=== PATIENT | female | born 1955 | race Caucasian/White ===

== ENCOUNTER → 2019-11-12 | Outpatient (CLI) | payer BC ==
[~2019-11-12] MED LIST: ASA5UEC PO; B COMPLETE1 EAC1 PO; BETAMETHASONE D15 G6; CALCIUM 500 +1 EAC5 PO; CRANBERRY CONCENTRAT PO; HYDROCODONE-AP1 EAC6 PO; KEFLEX500 MG PO; NOHOMEMEDICATIONS; NYSTATIN15 GM; ONDANSETRON HCL4 M2 PO; PROAIR HFA8.5 GM INH; TRIAMCINOLONE A80 G2; VITAMIN D33000 UNIT PO; VITAMINC500 PO
== END ==
LOC: LAB 11:45
PROVIDERS: ATTEND Nurse Practitioner
DX: R05 Cough (principal); R19.7 Diarrhea, unspecified; R53.1 Weakness; R53.83 Other fatigue; Z20.828 Contact with and (suspected) exposure to other viral communicable diseases

== ENCOUNTER 2019-11-19 19:10 | Emergency (ER) | payer BC, OTHER ==
[~2019-11-19] VITALS: Ht 154.9 cm; Wt 81.7 kg
[2019-11-19 19:53] LABS: BE(vivo) -14.8 mmol/L (-2 to +3); HCO3 10.4 mmol/L (22.0-26.0); PO2 79.8 mmHg (80.0-100.0); sO2 94.4 % (92.0-98.0)
[2019-11-19 19:54] LABS: PCO2 23.6 mmHg (35.0-45.0); pH 7.261 (7.360-7.450)
[2019-11-19 20:25] LABS: HEMATOCRIT 37.6 % (37.0-47.0); HEMOGLOBIN 11.4 gm/dL (12.0-15.0); MCH 29.1 pg (26.0-34.0); MCHC 30.3 g/dL (28.0-37.0); MCV 96.1 fL (80.0-100.0); PLATELET COUNT 236 thou/uL (150-400); RBC 3.91 mil/uL (4.20-5.00); RDW 15.9 % (10.5-14.5); WBC 23.2 thou/uL (4.0-11.0)
[2019-11-19 20:42] LABS: CALCIUM 9.2 mg/dL (8.5-10.1); CREATININE 3.8 mg/dL (0.6-1.0); POTASSIUM 4.5 mmol/L (3.5-5.1)
[2019-11-19 20:46] LABS: ALBUMIN 2.1 g/dL (3.4-5.0); TOTAL BILIRUBIN 0.4 mg/dL (0.2-1.0); TOTAL PROTEIN 7.8 g/dL (6.4-8.2)
[2019-11-19 20:58] LABS: ABSOLUTE NEUTROPHILS 20.6 thou/uL (1.4-8.2); PLATELET ESTIMATE NORMAL
[2019-11-19 23:11] LABS: URINE BILIRUBIN NEGATIVE (Negative); URINE BLOOD 3+ (Negative); URINE CLARITY SL CLOUDY; URINE COLOR YELLOW; URINE GLUCOSE-RANDOM* 3+ (Negative); URINE KETONES TRACE (Negative); URINE NITRITE-REFLEX NEGATIVE (Negative); URINE PROTEIN (DIPSTICK) 1+ (Negative); URINE SPECIFIC GRAVITY <= 1.005 (1.005-1.035); URINE UROBILINOGEN 0.2 E.U./dl (0.2-1.0)
[2019-11-19 23:24] LABS: URINE LEUKOCYTES-REFLEX 1+ (Negative)
[2019-11-19 23:27] LABS: CASTS None Seen /LPF (None Seen); CRYSTALS None Seen /LPF (None Seen); MUCUS 0-3 Light strn/LPF (None Seen); SQUAMOUS 0-3 Few /LPF (0-3); URINE RBC 0-2 Rare /HPF (0-2); WBC CLUMPS Few (None Seen)
[2019-11-20 00:04] LABS: BE(vivo) -13.4 mmol/L (-2 to +3); HCO3 12.1 mmol/L (22.0-26.0); PCO2 27.1 mmHg (35.0-45.0); PO2 72.8 mmHg (80.0-100.0); sO2 92.9 % (92.0-98.0)
[2019-11-20 00:05] LABS: pH 7.267 (7.360-7.450)
[2019-11-20 00:54] LABS: CREATININE 3.3 mg/dL (0.6-1.0)
[2019-11-20 00:55] LABS: POTASSIUM 3.5 mmol/L (3.5-5.1)
[2019-11-20 03:18] VITALS: BP 101/54
== END 2019-11-20 03:20 | disposition short-term general hospital (02) ==
LOC: ER 19:10
PROVIDERS: Emergency Medicine; Physician Assistant
DX: A41.9 Sepsis, unspecified organism (principal); N17.9 Acute kidney failure, unspecified; E11.10 Type 2 diabetes mellitus with ketoacidosis without coma; N39.0 Urinary tract infection, site not specified; R91.1 Solitary pulmonary nodule; Z20.828 Contact with and (suspected) exposure to other viral communicable diseases; Z88.8 Allergy status to other drugs, medicaments and biological substances; Z91.048 Other nonmedicinal substance allergy status